=== PATIENT | female | born 1950 | race African-American/Black ===

== ENCOUNTER 2024-09-18 11:45 | Inpatient (IN) | payer MEDICARE, OTHER ==
[~2024-09-18] VITALS: Ht 157.5 cm; Wt 70.8 kg
[2024-09-18] MEDS ORDERED: ROSU5TAB PO (12:00)
[2024-09-18] MEDS ORDERED: MELO-107 PO (12:00)
[2024-09-18] MEDS ORDERED: METO-356 PO (12:00)
[2024-09-18] MEDS ORDERED: LOSA100T31 PO (12:00)
[2024-09-18] MEDS ORDERED: DICY20TA2 PO (12:00)
[2024-09-18] MEDS ORDERED: MESA1.2T3 PO ×2 (12:00→13:05)
[2024-09-18] MEDS ORDERED: CLOP75TA33 PO (12:00)
[2024-09-18] MEDS ORDERED: NITROGLYCERIN OINT 1 GM PACKET TP ONE (12:16)
[2024-09-18] MEDS ORDERED: METOPROLOL TARTRATE 5 MG/5 ML VIAL IVP ONE (12:16)
[2024-09-18] MEDS ORDERED: MAGNESIUM SULFATE/D5W 200 ML ONE (12:18)
[2024-09-18] MEDS: METOPROLOL TARTRATE 5 MG/5 ML VIAL IVP ONE (12:24)
[2024-09-18] MEDS: MAGNESIUM SULFATE 2 GM in IV DEXTROSE 5% 100 ML IV ONE (12:25)
[2024-09-18] MEDS: NITROGLYCERIN OINT 1 GM PACKET TP ONE (12:25)
[2024-09-18 12:26] LABS: BASOPHILS % (AUTO) 0.7 % (0.0-2.0); EOSINOPHILS # (AUTO) 0.1 K/uL (0.0-0.7); EOSINOPHILS % (AUTO) 1.4 % (0.0-7.0); HEMATOCRIT 34.1 % (31.2-41.9); HEMOGLOBIN 11.1 g/dL (10.9-14.3); LYMPHOCYTES # (AUTO) 2.1 K/uL (0.8-4.8); LYMPHOCYTES % (AUTO) 33.8 % (20.5-51.5); MEAN CORPUSCULAR HEMOGLOBIN 23.3 uug (24.7-32.8); MEAN CORPUSCULAR HGB CONC 33 g/dL (32.3-35.6); MEAN CORPUSCULAR VOLUME 71.3 fL (75.5-95.3); MONOCYTES # (AUTO) 0.4 K/uL (0.1-1.30); MONOCYTES % (AUTO) 6.8 % (0.0-11.0); NEUTROPHILS # (AUTO) 3.6 K/uL (1.8-8.9); NEUTROPHILS % (AUTO) 57.3 % (38.5-71.5); PLATELET COUNT (AUTO) 216 K/uL (179-408); RED BLOOD CELL COUNT(AUTO) 4.78 MIL/uL (3.63-4.92); RED CELL DISTRIBUTION WIDTH 15.9 % (12.3-17.7); WHITE BLOOD COUNT (AUTO) 6.4 K/uL (3.8-11.8)
[2024-09-18 12:30] LABS: DIFFERENTIAL COMMENT 1
[2024-09-18 12:38] LABS: CALCIUM 9.7 mg/dL (8.5-10.1); CARBON DIOXIDE 28 mmol/L (21-32); CHLORIDE 101 mmol/L (98-107); CREATININE 0.9 mg/dL (0.6-1.3); GLUCOSE 85 mg/dL (74-106); POTASSIUM 2.8 mmol/L (3.5-5.1); SODIUM SERUM 143 mmol/L (136-145); UREA NITROGEN, BLOOD 11 mg/dL (7-18)
[2024-09-18] MEDS ORDERED: POTASSIUM BICARBONATE/CIT AC 25 MEQ TABLET.EFF ONE (12:49)
[2024-09-18 12:50] LABS: NT-PRO BNP 202 pg/mL (0-125)
[2024-09-18] MEDS: POTASSIUM BICARBONATE/CIT AC 25 MEQ TABLET.EFF PO ONE (12:53)
[2024-09-18] MEDS ORDERED: NITR0.4T48 SL (13:05)
[2024-09-18] MEDS ORDERED: KETO15CR2 TP (13:05)
[2024-09-18] MEDS ORDERED: CLON0.1T PO (13:05)
[2024-09-18] MEDS ORDERED: TRET40CR8 TP (13:07)
[2024-09-18 13:37] LABS: IRON, SERUM 79 ug/dL (50-175)
[2024-09-18] MEDS ORDERED: ONDANSETRON 4 MG/2 ML VIAL IV PRN (15:15)
[2024-09-18] MEDS ORDERED: MORPHINE SULFATE 2 MG/1 ML DISP.SYRIN IVP PRN (15:15)
[2024-09-18 18:18] VITALS: BP 183/74; TEMP 98.4; O2SAT 93
[2024-09-18] MEDS: hydrALAZINE HCL 20 MG/1 ML VIAL IV PRN (18:53)
[2024-09-18 19:00] VITALS: BP 136/49; TEMP 98.4; O2SAT 97
[2024-09-18] MEDS: BENZOCAINE/MENTH/CETYLPYRD LOZENGE MM PRN (20:54)
[2024-09-18] MEDS: ACETAMINOPHEN 325 MG TABLET PO PRN (20:55)
[2024-09-18] MEDS: ATORVASTATIN 10 MG TABLET PO SCH (20:56)
[2024-09-18] MEDS: HEPARIN SODIUM,PORCINE 5,000 UNITS/ML VIAL SQ SCH (20:56)
[2024-09-19] VITALS: BP 133/60; TEMP 98.5; O2SAT 96
[2024-09-19 04:00] VITALS: BP 153/72; TEMP 98.4; O2SAT 97
[2024-09-19 07:29] LABS: BASOPHILS % (AUTO) 0.6 % (0.0-2.0); EOSINOPHILS # (AUTO) 0.1 K/uL (0.0-0.7); EOSINOPHILS % (AUTO) 1.2 % (0.0-7.0); HEMATOCRIT 39.2 % (31.2-41.9); HEMOGLOBIN 12.6 g/dL (10.9-14.3); LYMPHOCYTES # (AUTO) 2.2 K/uL (0.8-4.8); MEAN CORPUSCULAR HEMOGLOBIN 22.9 uug (24.7-32.8); MEAN CORPUSCULAR HGB CONC 32 g/dL (32.3-35.6); MONOCYTES # (AUTO) 0.6 K/uL (0.1-1.30); MONOCYTES % (AUTO) 7.7 % (0.0-11.0); NEUTROPHILS # (AUTO) 4.6 K/uL (1.8-8.9); NEUTROPHILS % (AUTO) 61.5 % (38.5-71.5); PLATELET COUNT (AUTO) 211 K/uL (179-408); RED BLOOD CELL COUNT(AUTO) 5.52 MIL/uL (3.63-4.92); RED CELL DISTRIBUTION WIDTH 15.7 % (12.3-17.7); WHITE BLOOD COUNT (AUTO) 7.4 K/uL (3.8-11.8)
[2024-09-19 07:32] LABS: DIFFERENTIAL COMMENT 1
[2024-09-19 07:46] LABS: ALANINE AMINOTRANSFERASE 14 U/L (14-59); ALBUMIN 3.9 g/dL (3.4-5.0); ALKALINE PHOSPHATASE 81 U/L (50-136); ASPARTATE AMINOTRANSFERASE 16 U/L (15-37); BILIRUBIN,TOTAL 0.8 mg/dL (0.2-1.0); CALCIUM 9.4 mg/dL (8.5-10.1); CARBON DIOXIDE 30 mmol/L (21-32); CHLORIDE 103 mmol/L (98-107); GLUCOSE 97 mg/dL (74-106); PHOSPHOROUS 3.1 mg/dL (2.5-4.9); POTASSIUM 3.4 mmol/L (3.5-5.1); SODIUM SERUM 143 mmol/L (136-145); TOTAL PROTEIN, SERUM 7.8 g/dL (6.4-8.2); UREA NITROGEN, BLOOD 12 mg/dL (7-18)
[2024-09-19 08:51] LABS: ANISOCYTOSIS 1+; EOSINOPHILS % (MANUAL) 1 % (0-8); HYPOCHROMASIA 2+; LYMPHOCYTES % (MANUAL) 29 % (20-40); MONOCYTES % (MANUAL) 8 % (2-10); NEUTROPHILS % (MANUAL) 62 % (42-75); PLATELET ESTIMATE ADEQUATE
[2024-09-19] MEDS ORDERED: Medication Not On Formulary EA (Rosuvastatin Calcium (Crestor) 5 MG) PO SCH (09:00)
[2024-09-19] MEDS ORDERED: MESALAMINE PO SCH (09:00)
[2024-09-19] MEDS ORDERED: Medication Not On Formulary EA (Losartan Potassium 1 TAB) PO SCH (09:00)
[2024-09-19] MEDS: CLOPIDOGREL 75 MG TABLET PO SCH (09:04)
[2024-09-19] MEDS: METOPROLOL SUCCINATE XL 25 MG TAB.SR.24H PO SCH (09:05)
[2024-09-19] MEDS: LOSARTAN POTASSIUM 50 MG TABLET PO SCH (09:06)
[2024-09-19] MEDS: POTASSIUM CHLORIDE 20 MEQ POWDER PACKET GT ONE (09:12)
[2024-09-19] MEDS: ALPRAZOLAM 0.25 MG TABLET PO ONE (09:12)
[2024-09-19] MEDS: AMLODIPINE 10 MG TABLET PO SCH (09:13)
[2024-09-19] MEDS: MESALAMINE 400 MG CAPSULE.DR PO SCH (09:13)
[2024-09-19] MEDS: hydrALAZINE HCL 50 MG TABLET PO SCH (09:18)
[2024-09-19 11:00] VITALS: BP 135/68; TEMP 98.2; O2SAT 96
[2024-09-19 16:00] VITALS: BP 139/50; TEMP 98.4; O2SAT 98
[2024-09-19 19:15] VITALS: BP 151/66; TEMP 99; O2SAT 94
[2024-09-20] VITALS (7 sets, daily range): BP systolic 144–189; BP diastolic 63–91; TEMP 97.7–98.9; O2SAT 96–98
[2024-09-20] MEDS: METOPROLOL SUCCINATE XL 25 MG TAB.SR.24H PO SCH (08:37)
[2024-09-20] MEDS: hydrALAZINE HCL 50 MG TABLET PO SCH (09:04)
[2024-09-20] MEDS: AMLODIPINE 10 MG TABLET PO SCH (20:12)
[2024-09-21 05:31] VITALS: BP_SYST 126; BP_SYST 160; BP_DIAS 79; BP_DIAS 82; TEMP 98.5; O2SAT 96
[2024-09-21 06:11] VITALS: BP 145/68
[2024-09-21 08:05] VITALS: BP 146/82; TEMP 98.5; O2SAT 97
[2024-09-21] MEDS ORDERED: METO-356 PO (09:28)
[2024-09-21] MEDS ORDERED: AMLO10TA59 PO (09:28)
[2024-09-21] MEDS ORDERED: HYDR50TA68 PO (09:28)
[2024-09-21] MEDS ORDERED: CLOP75TA33 PO (09:28)
[2024-09-21] MEDS ORDERED: ATOR10TA PO (09:28)
[2024-09-21 11:51] VITALS: BP 157/71; TEMP 98.9; O2SAT 97
== END 2024-09-21 12:28 | disposition home health service (06) | DRG 305 ==
LOC: ER 11:45 → TELE3 17:49
PROVIDERS: ADMIT Internal Medicine; ATTEND Internal Medicine
DX: I16.9 Hypertensive crisis, unspecified (principal); I50.32 Chronic diastolic (congestive) heart failure; Z59.00 Homelessness unspecified; I11.0 Hypertensive heart disease with heart failure; E87.6 Hypokalemia; I25.2 Old myocardial infarction; Z88.6 Allergy status to analgesic agent; Z88.0 Allergy status to penicillin; D64.9 Anemia, unspecified; I25.10 Atherosclerotic heart disease of native coronary artery without angina pectoris; Z95.5 Presence of coronary angioplasty implant and graft; Z79.02 Long term (current) use of antithrombotics/antiplatelets; Z79.899 Other long term (current) drug therapy; I27.20 Pulmonary hypertension, unspecified; E78.5 Hyperlipidemia, unspecified
CPT/HCPCS: 36415; 71045; 83550; 84100; 84484; 85025; 85730; 93307; A4606; A4663; G0378; J0360; J1644; J3475; J3490